=== PATIENT | female | born 1965 | race Asian ===

== ENCOUNTER 2021-03-08 09:50 | Day surgery (SDC) | payer OTHER ==
--- NOTE | 2021-03-07 11:42 | EKG ---
Test Date: 2021-03-07 Test Time: 10:35:51 Hand Bender: YAHIR MEASUREMENT RESULTS: Intervals: Rate: 63 AR: 170 QRSD: 86 QT: 402 QTc: 411 [place]: P: 70 AR: 170 QRS: 78 T: 91 INTERPRETIVE STATEMENTS: Normal sinus rhythm Possible Left atrial enlargement Borderline ECG No previous ECG available for comparison Electronically Signed On 03-07-21 11:41:56 CDT by Darryl Rae
--- NOTE | 2021-03-07 11:52 | RAD REPORT ---
EXAM DESCRIPTION: RAD - Chest Pa And Lat (2 Views) - 03/07/2021 11:46 am CLINICAL HISTORY: pre-op COMPARISON: No comparisons FINDINGS: No evidence of edema or pneumonia. The heart size is within normal limits.No acute osseous abnormality. No significant pleural effusions or pneumothorax. IMPRESSION: No acute cardiopulmonary disease.
[2021-03-08] MEDS ORDERED: CEFTRIAXONE/SWI 1gm 1 GM/10 ML SYR ONE (10:30)
[2021-03-08] MEDS ORDERED: Ringers Lactate 1,000 ML IV ONE (10:30)
[2021-03-08] MEDS ORDERED: LIDOCAINE 1% MPF 5 ML VIAL ONE (11:05)
[2021-03-08] MEDS ORDERED: propofoL 200 MG/20 ML VIAL IV ONE (11:05)
[2021-03-08] MEDS ORDERED: FENTANYL CITR 100 MCG/2 ML ONE (11:05)
[2021-03-08 11:34] LABS: Potassium 3.8 mmol/L (3.5-5.1)
[2021-03-08] MEDS ORDERED: GLYCOPYRROLATE 0.2 MG/ML SYR ONE (12:15)
[2021-03-08] MEDS ORDERED: EPHEDRINE SULF 50 MG/ML VIAL ONE (12:16)
[2021-03-08] MEDS ORDERED: dexAMETHasone 10 MG/ML VIAL ONE (12:19)
[2021-03-08] MEDS ORDERED: KETOROLAC 30 MG/ML INJ ONE (12:19)
[2021-03-08] MEDS ORDERED: CODEINE 30MG/APAP 300MG TAB PO PRN (12:25)
[2021-03-08] MEDS ORDERED: PHENAZOPYRIDINE 100MG TAB PO ONE ×2 (12:25→13:00)
[2021-03-08] MEDS ORDERED: ONDANSETRON 4 MG/2 ML VIAL ONE (12:30)
[2021-03-08] MEDS ORDERED: Mastisol Adhesive Liq ONE (12:30)
--- NOTE | 2021-03-08 12:53 | OP ---
Date of Procedure: 03/08/2021 Surgeon: ALYSE CHIN Preoperative Diagnoses: 1.Left obstructive ureterolithiasis. 2.Complicated urinary tract infection. Postoperative Diagnoses: 1.Left obstructive ureterolithiasis. 2.Complicated urinary tract infection. Principle Procedures: 1.Cystoscopy. 2.Left ureteral orifice stone extraction. 3.Left retrograde pyelography. 4.Left ureteral tethered stent placement. Indication For Procedure: Ms. Andino presented to the [facility] with over a 1-month history of left flank pain that radiated into her left lower quadrant associated with a CT done at an outside [facility] revealing the presence of an 8 mm ureteral calculus. She was taking ciprofloxacin antimicrobi al therapy as prescribed from the outside facility, but she had episodes of feverishness and chills a t home prior to her evaluation. As a result, because of the potential for a complicated urinary trac t infection resistant to the ciprofloxacin, I recommended timely operative management and she request ed it be done sooner than next Wednesday and I agreed to accommodate her. Procedure In Detail: The patient was consented in the preoperative holding area before being transfe rred to the operative suite where general anesthesia was induced. She was placed in the lithotomy po sition, padded and secured to the table appropriately. Her genitalia were prepped using Hibiclens an d she was draped in standard fashion. The case was begun using the cystoscope sounds to dilate the u rethral meatus sufficiently to place a 22-Jordanian rigid cystoscope intravesically. The bladder was br iefly surveyed, and there were no mucosal lesions, foreign bodies, but the stone was visible, crownin g at the left ureteral orifice. As a result, I employed an alligator grasper to grasp the tip of the stone and finagle it by shimming it out of the ureteral orifice. The stone was successfully extract ed and sent for chemical analysis. I then placed a 5-Jordanian ureteral access catheter into the ureter al orifice and performed a retrograde pyelogram. Left retrograde pyelography: Using a 70:30 mixture of Omnipaque and saline, contrast was injected via the lumen of the 5-Jordanian ur eteral access catheter and did propagate in an obstructed slow fashion up the distal into the mid and proximal ureter before entering a mild-moderately hydronephrotic renal pelvis. No specific other fi lling defects consistent with the stone were discretely identified within the renal pelvis or calices . There was ureteronephrosis along the entirety of the length of the ureter. As a result, I placed a 6-Jordanian by 26 cm double-J ureteral stent into her left ureter with a coil observed fluoroscopicall y within the renal pelvis and 1 cystoscopically within her bladder. The stent was left on a string f or ease of extraction and this was secured to her introitus using Mastisol and Steri-Strips. The pat ient was then taken out of the lithotomy position, awakened from general anesthesia, transferred to a stretcher and then transferred to the recovery room in good condition. Complications: None. Discharge Disposition: She will be discharged to continue her ciprofloxacin therapy noting she was g iven 1 g of ceftriaxone IV antimicrobial prophylaxis intraoperatively. She [facility] early next week on Wednesday or Wednesday, perhaps for tethered ureteral stent extraction wi nurse practitioner, Sary in the clinic. Subsequent evaluation including 2 times 24-hour urine studies and blood work should be done if she is a recurrent stone former. Otherwise, she should be counseled to increase the volume of her fluid intake such that she voids at least 2 L of urine a day to decrease her risk of future stone forming event. DARRYN/NAELL Voice ID: [id number] Report ID: [id number]
[2021-03-08] MEDS ORDERED: CODEINE 30MG/APAP 300MG TAB ONE (12:59)
--- NOTE | 2021-03-08 13:14 | RAD REPORT ---
EXAM DESCRIPTION: RAD - Urethrocystogrphy Retrograde - 03/08/2021 12:16 pm CLINICAL HISTORY: STENT COMPARISON: Chest Pa And Lat (2 Views) dated 03/07/2021 FINDINGS: Seven intraprocedural fluoroscopic images were submitted. This shows cannulation of the le ft ureter and injection of contrast demonstrating at least one filling defect suggesting a ureteral c alculus. A left ureteral stent was placed. Dose: 4.1 Images acquired: 7 IMPRESSION: Intra fluoroscopic images demonstrating placement of a left ureteral stent.
[2021-03-08 13:28] VITALS: BP 123/64; TEMP 97.6; O2SAT 98
== END 2021-03-08 13:20 | disposition home or self-care (01) ==
LOC: OR 09:50
PROVIDERS: ATTEND Urology
PROC: 0T778DZ Dilation of Left Ureter with Intraluminal Device, Via Natural or Artificial Opening Endoscopic (ICD-10-PCS; 2021-03-08)
PROC: 0TCD8ZZ Extirpation of Matter from Urethra, Via Natural or Artificial Opening Endoscopic (ICD-10-PCS; principal; 2021-03-08 11:00)
DX: N20.1 Calculus of ureter (principal); N39.0 Urinary tract infection, site not specified
CPT/HCPCS: 93005; 87088; 87086; 80048; 36415; 88300; 82360; 71046; 74450; 51610; 52320; 52332; J2704; J3010; J1100; J0696; J7120; J2405